=== PATIENT | female | born 1985 | race Caucasian/White ===

== ENCOUNTER 2016-09-17 21:10 | Emergency (ER) | payer MEDICAID ==
[~2016-09-17] VITALS: Ht 160 cm; Wt 72.6 kg
[2016-09-17 21:34] VITALS: BP 147/93
--- NOTE | 2016-09-17 22:38 | NUR ---
TO ER BED 3
--- NOTE | 2016-09-17 22:40 | NUR ---
31Y F BIB SELF C/O LOWER BACK PAIN X 3 DAYS WITH RECURRING HEADACHE. PT DENIES ANY TRAUMA TO THE AREA NOR HAS SHE BEEN IN ANY ACCIDENTS. PT STATES ALSO STATES SHE HAS BEEN HAVING PAINFUL URINATION. PT DENIES N/V/D; SKIN IS PINK/WARM/DRY; AAOX4 WITH EVEN AND STEADY GAIT; LUNGS CLEAR BL; HR EVEN AND REGULAR; PT DENIES ANY FEVER, CP, SOB, OR COUGH AT THIS TIME; PATIENT STATES PAIN OF 10/10 AT THIS TIME; VSS; PATIENT POSITIONED FOR COMFORT; HOB ELEVATED; BEDRAILS UP X2; BED DOWN. ER MD MADE AWARE OF PT STATUS.
--- NOTE | 2016-09-17 22:50 | NUR ---
Patient being evaluated by physician DR CHOI at bedside.
[2016-09-17 23:29] VITALS: BP 139/87
--- NOTE | 2016-09-17 23:29 | NUR ---
Patient discharged with v/s stable. Written and verbal after care instructions given and explained. Patient alert, oriented and verbalized understanding of instructions. Ambulatory with steady gait. All questions addressed prior to discharge. ID band removed. Patient advised to follow up with PMD. Rx of BACTRIM DS, ZOFRAN ODT 4MG, TRAMADOL 50MG given. Patient educated on indication of medication including possible reaction and side effects. Opportunity to ask questions provided and answered.
== END 2016-09-17 23:29 | disposition home or self-care (01) ==
LOC: MED 21:10
DX: S39.012A Strain of muscle, fascia and tendon of lower back, initial encounter (principal); N39.0 Urinary tract infection, site not specified; X58.XXXA Exposure to other specified factors, initial encounter; Y92.9 Unspecified place or not applicable; Z32.02 Encounter for pregnancy test, result negative

== ENCOUNTER 2016-09-28 00:17 | Emergency (ER) | payer MEDICAID ==
[~2016-09-28] VITALS: Ht 160 cm; Wt 72.6 kg
[2016-09-28 00:20] VITALS: BP 150/90
--- NOTE | 2016-09-28 00:26 | NUR ---
TO ER BED 3
[2016-09-28] MEDS ORDERED: NACL 0.9% 1,000 ML IV SCH (00:34)
[2016-09-28] MEDS ORDERED: ONDANSETRON 4 MG/2 ML VIAL IVP ONE (00:35)
[2016-09-28] MEDS ORDERED: KETOROLAC 30 MG/ML VIAL IVP ONE (00:35)
--- NOTE | 2016-09-28 00:56 | NUR ---
31Y/F PATIENT PRESENTS TO ED WITH C/O RT FLANK PAIN, VOMITING 6 HOURS AGO . DENIES FEVER, DIARRHEA. HX. KIDNEY DISEASE; SKIN IS PINK/WARM/DRY; AAOX4 WITH EVEN AND STEADY GAIT; LUNGS CLEAR BL; HR EVEN AND REGULAR; PT DENIES ANY FEVER, CP, SOB, OR COUGH AT THIS TIME; PATIENT STATES PAIN OF 10/10 AT THIS TIME; VSS; PATIENT POSITIONED FOR COMFORT; HOB ELEVATED; BEDRAILS UP X2; BED DOWN. ER MD MADE AWARE OF PT STATUS.
--- NOTE | 2016-09-28 01:00 | NUR ---
Patient being evaluated by DR. KLINE at bedside.
[2016-09-28 01:03] LABS: APPEARANCE,URINE CLEAR (CLEAR); BILIRUBIN,URINE NEGATIVE (NEGATIVE); BLOOD, URINE TRACE-I (NEGATIVE); COLOR,URINE YELLOW (YELLOW); LEUKOCYTE ESTERASE ,URINE NEGATIVE (NEGATIVE); NITRITE, URINE NEGATIVE (NEGATIVE); PH,URINE 7.5 (5.0-9.0); PROTEIN,URINE NEGATIVE (NEGATIVE); UGLUCOSE NEGATIVE (NEGATIVE); UROBILINOGEN,URINE 0.2 EU/dL (0.2 - 1)
[2016-09-28] MEDS ORDERED: MORPHINE SULFATE 4 MG/ML SYR IVP ONE ×2 (01:05→01:45)
[2016-09-28 01:06] LABS: BASOPHILS # (AUTO) 0.1 K/uL (0.00-0.22); BASOPHILS % (AUTO) 1.3 % (0.0-2.0); EOSINOPHILS # (AUTO) 0.1 K/uL (0-0.4); EOSINOPHILS % (AUTO) 1.4 % (0.0-4.0); HEMATOCRIT 28.6 % (36-48); HEMOGLOBIN 8.6 g/dL (12.0-16.0); LYMPHOCYTES # (AUTO) 1.9 K/uL (2.5-16.5); LYMPHOCYTES % (AUTO) 22.2 % (20.5-51.1); MEAN CORPUSCULAR HEMOGLOBIN 19 pg (27-31); MEAN CORPUSCULAR HGB CONC 30 g/dL (33-37); MEAN CORPUSCULAR VOLUME 63 fL (80-94); MONOCYTES # (AUTO) 0.4 K/uL (0.8-1.0); MONOCYTES % (AUTO) 4.6 % (1.7-9.3); NEUTROPHILS # (AUTO) 5.9 K/uL (1.8-7.7); NEUTROPHILS % (AUTO) 70.5 % (42.2-75.2); PLATELET COUNT (AUTO) 258 K/uL (140-450); RED BLOOD CELL COUNT(AUTO) 4.53 MIL/uL (4.20-5.40); RED CELL DISTRIBUTION WIDTH 15.9 % (11.6-13.7); WHITE BLOOD COUNT (AUTO) 8.4 K/uL (4.8-10.8)
[2016-09-28 01:09] LABS: HYPOCHROMASIA 1+
[2016-09-28 01:11] LABS: ALBUMIN 4.2 g/dL (3.4-5.0); ANION GAP 13.4 (8-16); CALCIUM 8.5 mg/dL (8.5-10.1); CARBON DIOXIDE 26.7 mmol/L (21-32); CREATININE 0.7 mg/dL (0.6-1.3); POTASSIUM 3.1 mmol/L (3.5-5.1); TOTAL BILIRUBIN 0.4 mg/dL (0.0-1.0)
[2016-09-28 01:13] LABS: BACTERIA,URINE 1+ /HPF (None Seen); RBC,URINE 0-5 (RARE) /HPF (0-5); SQUAMOUS EPITHELIAL CELL,UR 0-3 (FEW) /LPF (0-3 (FEW)); WBC,URINE 0-5 (RARE) /HPF (0-5)
[2016-09-28 02:48] VITALS: BP 130/85
--- NOTE | 2016-09-28 02:48 | NUR ---
Patient discharged with v/s stable. Written and verbal after care instructions given and explained. Patient alert, oriented and verbalized understanding of instructions. Ambulatory with steady gait. All questions addressed prior to discharge. ID band removed. Patient advised to follow up with PMD. Rx of MOTRIN 800 MG, NORCO 5/325MG, FLOMAX 0.4 MG given. Patient educated on indication of medication including possible reaction and side effects. Opportunity to ask questions provided and answered.
== END 2016-09-28 02:48 | disposition home or self-care (01) ==
LOC: MED 00:17
PROC: 3E033GC Introduction of Other Therapeutic Substance into Peripheral Vein, Percutaneous Approach (ICD-10-PCS; principal; 2016-09-28)
PROC: BW21ZZZ Computerized Tomography (CT Scan) of Abdomen and Pelvis (ICD-10-PCS; 2016-09-28)
DX: N20.0 Calculus of kidney (principal); Z87.442 Personal history of urinary calculi; Z32.02 Encounter for pregnancy test, result negative
CPT/HCPCS: 36415; 74176; 80053; 81001; 81025; 83690; 85025; 87086; 96361; 96374; 96375; 96376; 99285; J1885; J2270; J2405

== ENCOUNTER 2017-10-05 18:26 | Inpatient (IN) | payer MEDICAID ==
[~2017-10-05] VITALS: Ht 160 cm; Wt 75.7 kg
[2017-10-05 18:42] VITALS: BP_SYST 148; BP_SYST 153; BP_DIAS 100; BP_DIAS 98
--- NOTE | 2017-10-05 18:53 | NUR ---
AFTER PROVIDING URINE SAMPLE PT AMBULATES BACK TO THE LOBBY PER DR KLINE
[2017-10-05 19:13] LABS: BASOPHILS # (AUTO) 0.1 K/uL (0.00-0.22); BASOPHILS % (AUTO) 1.5 % (0.0-2.0); EOSINOPHILS # (AUTO) 0.1 K/uL (0-0.4); EOSINOPHILS % (AUTO) 0.9 % (0.0-4.0); HEMATOCRIT 31.3 % (36-48); HEMOGLOBIN 9.7 g/dL (12.0-16.0); LYMPHOCYTES # (AUTO) 2.6 K/uL (2.5-16.5); LYMPHOCYTES % (AUTO) 30.1 % (20.5-51.1); MEAN CORPUSCULAR HEMOGLOBIN 21 pg (27-31); MEAN CORPUSCULAR HGB CONC 31 g/dL (33-37); MEAN CORPUSCULAR VOLUME 69.3 fL (80-94); MONOCYTES # (AUTO) 0.4 K/uL (0.8-1.0); MONOCYTES % (AUTO) 4.7 % (1.7-9.3); NEUTROPHILS # (AUTO) 5.5 K/uL (1.8-7.7); NEUTROPHILS % (AUTO) 62.8 % (42.2-75.2); PLATELET COUNT (AUTO) 332 K/uL (140-450); RED BLOOD CELL COUNT(AUTO) 4.52 MIL/uL (4.20-5.40); RED CELL DISTRIBUTION WIDTH 17.9 % (11.6-13.7); WHITE BLOOD COUNT (AUTO) 8.7 K/uL (4.8-10.8)
--- NOTE | 2017-10-05 21:20 | NUR ---
PT TAKEN TO BED 12
--- NOTE | 2017-10-05 21:24 | NUR ---
32Y F BIB FAMILY C/O BACK PAIN RELATED TO RIGHT KIDNEY STENT PLACED IN 3 WEEKS AGO WHILE AT [facility]. PT STATES SHE IS SUPPOSE TO HAVE STENT REMOVED ON October BUT PAIN IS UNBAREABLE. PT STATES SHE HAS BEEN HAVING SEVERAL EPISODES OF HEMATURIA. PT STATES SHE WAS SEEN RECENTLY AT [facility], AND WAS TOLD SHE HAS AN INFECTION AND WAS GIVEN ABX AND PAIN MEDS BUT PT STATES PAIN HAS NOT SUBSIDE.
[2017-10-05] MEDS ORDERED: KETOROLAC 30 MG/ML VIAL IVP ONE (22:05)
[2017-10-05] MEDS ORDERED: NACL 0.9% 1,000 ML IV ONE (22:05)
[2017-10-05] MEDS ORDERED: cefTRIAXone 1,000 MG VIAL ONE (22:18)
[2017-10-05] MEDS ORDERED: MORPHINE SULFATE 4 MG/ML SYR IVP ONE (23:00)
--- NOTE | 2017-10-05 23:00 | NUR ---
Patient appears to be resting comfortably in bed. Vital Signs within normal limits. Respirations even and unlabored.
[2017-10-05 23:26] LABS: APPEARANCE,URINE CLEAR (CLEAR); BILIRUBIN,URINE NEGATIVE (NEGATIVE); BLOOD, URINE 3+ (NEGATIVE); COLOR,URINE YELLOW (YELLOW); LEUKOCYTE ESTERASE ,URINE 1+ (NEGATIVE); NITRITE, URINE NEGATIVE (NEGATIVE); PH,URINE 6.5 (5.0-9.0); UGLUCOSE NEGATIVE (NEGATIVE)
[2017-10-06 00:27] LABS: RBC,URINE 3-10 (FEW) /HPF (0-5)
[2017-10-06] MEDS ORDERED: MORPHINE SULFATE 4 MG/ML SYR IVP ONE (01:50)
[2017-10-06] MEDS ORDERED: ONDANSETRON 4 MG/2 ML VIAL IVP ONE (02:10)
[2017-10-06] MEDS ORDERED: ONDANSETRON 4 MG/2 ML VIAL ONE (02:11)
[2017-10-06 02:19] LABS: POTASSIUM 3.3 mmol/L (3.5-5.1)
[2017-10-06 02:20] LABS: ANION GAP 16.2 (8-16); CARBON DIOXIDE 23.1 mmol/L (21-32)
[2017-10-06 02:21] LABS: CREATININE 0.8 mg/dL (0.6-1.3); TOTAL BILIRUBIN 0.2 mg/dL (0.0-1.0)
[2017-10-06 02:22] LABS: ALBUMIN 3.7 g/dL (3.4-5.0)
[2017-10-06] MEDS ORDERED: POTASSIUM CHLORIDE 10 MEQ TABER PO ONE (03:15)
--- NOTE | 2017-10-06 03:33 | NUR ---
Patient discharged with v/s stable. Written and verbal after care instructions given and explained. Patient alert, oriented and verbalized understanding of instructions. Ambulatory with steady gait. All questions addressed prior to discharge. ID band removed. Patient advised to follow up with PMD. Rx of KELFEX 500 MG, PERCOCET 5/325 MG given. Patient educated on indication of medication including possible reaction and side effects. Opportunity to ask questions provided and answered.
--- NOTE | 2017-10-06 05:00 | NUR ---
LACTIC ACID 3.0. PT CALLED AND INFORMED TO RETURN TO ER. PT AGREES. ER MD DR GUSTAFSON MADE AWARE
[2017-10-06] MEDS ORDERED: NACL 0.9% 1,000 ML IV ONE (05:45)
--- NOTE | 2017-10-06 05:50 | NUR ---
PT RETURNED BACK TO ED; AMBULATED TO ER BED 12; ER MD DR GUSTAFSON MADE AWARE.
[2017-10-06] MEDS: NACL 0.9% 1,000 ML IV SCH ×3 (05:59→07:45)
[2017-10-06] MEDS ORDERED: ONDANSETRON 4 MG/2 ML VIAL IM/IVP PRN (06:00)
[2017-10-06] MEDS ORDERED: ACETAMINOPHEN 325 MG TAB PO PRN (06:00)
[2017-10-06] MEDS ORDERED: KETOROLAC 30 MG/ML VIAL IVP PRN (06:00)
[2017-10-06] MEDS ORDERED: HYDROcodone/APAP 7.5/325 MG 1 TAB PO PRN (06:00)
[2017-10-06] MEDS ORDERED: DOCUSATE SODIUM 100 MG GELCAP PO PRN (06:00)
--- NOTE | 2017-10-06 06:31 | NUR ---
Patient will be admitted to care of DR GREER. Admited to TELE 112A. Will go to room 112A. Belongings list completed. Report to LAMBERTO CHRISTIE.
--- NOTE | 2017-10-06 06:40 | NUR ---
PATIENT ADMITTED TO THE UNIT FROM ER. VITAL SIGNS TAKEN, MRSA SPECIMEN SWABBED. PLAN OF CARE DISCUSSED WITH PATIENT. PATIENT VERBALIZED UNDERSTANDING
[2017-10-06] MEDS: MORPHINE SULFATE 2 MG/ML SYR IVP PRN ×2 (07:12→12:02)
--- NOTE | 2017-10-06 07:15 | NUR ---
PATIENT REPORT GIVEN TO MORNING NURSE AT BEDSIDE FOR CONTINUITY OF CARE. PATIENT IS IN STABLE CONDITION
--- NOTE | 2017-10-06 07:16 | NUR ---
RECEIVED PATIENT REPORT AT BEDSIDE FROM HVAC CONTROLS TECHNICIAN NURSE FOR CONTINUITY OF CARE. NO SIGNS OF DISTRESS OR SOB NOTED. PATIENT C/O PAIN 9/10 D/T FLANK PAIN. PM NURSE MEDICATED PATIENT WITH MORPHINE PRN. WILL REASSESS. BREATHING EVEN AND UNLABORED. INITIAL ASSESSMENT DONE, VITAL SIGNS WITHIN NORMAL LIMITS. UPDATED BOARD, VERBALIZED PLAN OF CARE TO PATIENT, PATIENT VERBALIZED UNDERSTANDING. SAFETY PRECAUTION IN PLACE, CALL LIGHT WITHIN REACH, WILL CONTINUE TO MONITOR PATIENT.
[2017-10-06 07:55] VITALS: BP 136/94
--- NOTE | 2017-10-06 08:30 | NUR ---
ADMINISTERED ORDERED MEDICATION. PATIENT C/O OF FLANK PAIN 12/20. PRN NORCO GIVEN. PATIENT TOLERATED THEM WELL. SAFETY PRECAUTION IN PLACE, CALL LIGHT WITHIN REACH. WILL CONTINUE TO MONITOR PATIENT. Addendum: 10/06/17 at 1018 by Alberto Mullen RN XRAY TECHS IN TO DO CHEST XRAY. WILL AWAIT FOR RESULT.
[2017-10-06] MEDS ORDERED: LACTOBACILLUS RHAMNOSUS GG 1 EACH CAP PO SCH ×2 (09:00→17:00)
--- NOTE | 2017-10-06 09:45 | NUR ---
CALLED LAB TO CLARIFY ABOUT CANCELLED LACTIC ACID LAB DRAW. INFORMED DR. GRIER ABOUT CANCELED LACTIC ACID LAB BLOOD DRAW. AWAITING NEW ORDER.
[2017-10-06 10:06] LABS: PROTHROMBIN TIME 10.6 secs (10.8-13.4)
--- NOTE | 2017-10-06 10:15 | NUR ---
PATIENT C/O PAIN 01/19 D/T FLANK PAIN. MORPHINE IVP OFFERED, PATIENT REFUSED AT THIS MOMENT, STATING THAT IT DOES NOT WORK. TORADOL IVP OFFERED. PATIENT ALSO REFUSED STATING THAT THE TORADOL THAT SHE RECEIVED IN ER DID NOT WORK. PATIENT DID STATE THAT PRIOR TO BEING ADMITTED TO HOSPITAL, SHE WAS TAKEN NORCO 10 PO PRN FOR PAIN, AND THAT SEEM TO HELP. WILL PASS THIS MESSAGE ONTO DR. GRIER. PATIENT RESTING IN BED, BREATHING EVEN AND UNLABORED. SAFETY PRECAUTION IN PLACE, CALL LIGHT WITHIN REACH, WILL CONTINUE TO MONITOR PATIENT. Addendum: 10/06/17 at 1450 by Alberto Mullen RN URINE SAMPLE OBTAINED.
[2017-10-06 12:00] VITALS: BP 141/98
--- NOTE | 2017-10-06 12:02 | NUR ---
PATIENT C/O FLANK PAIN 10/10, NORCO 10 PRN NOT AVAILABLE YET. PATIENT ANXIOUS, CRYING, AND IN PAIN. PATIENT ACCEPTED PRN MORPHINE. PATIENT TOLERATING IT WELL. UPDATED PATIENT WITH PLAN OF CARE, PATIENT VERBALIZED UNDERSTANDING. SPOKE TO DR. GRIER ABOUT POSSIBLE ADVANCEMENT OF DIET. NEW ORDER OF FULL LIQUID ENTERED. DIETARY WAS CALLED, WAITING FOR FULL LIQUID DIET FOR PATIENT. PATIENT NOW RESTING IN BED, MEDICATED FOR PAIN AND WAITING FOR LATE LUNCH. SAFETY PRECAUTION IN PLACE, CALL LIGHT WITHIN REACH, WILL CONTINUE TO MONITOR PATIENT.
[2017-10-06] MEDS ORDERED: HYDROcodone/APAP 10/325 MG 1 TAB TAB PO PRN (12:10)
[2017-10-06] MEDS ORDERED: FERR-252 PO (14:00)
[2017-10-06] MEDS ORDERED: ASCO-786 PO (14:00)
[2017-10-06] MEDS ORDERED: ACET-2858 PO (14:00)
[2017-10-06] MEDS ORDERED: FERRIC GLUCONATE 125 MG in NACL 0.9% 100 ML IV SCH (15:00)
--- NOTE | 2017-10-06 15:05 | NUR ---
PT C/O FLANK PAIN 10/10, WITH FACIAL GRIMACING, RESTLESSNESS, AND CRYING. NORCO PRN ADMINISTERED. NEW ORDER OF FERRLECIT ADMINISTERED. PATIENT TOLERATING THEM WELL. CRITICAL LAB OF 3.[address] GRIER. PATIENT RESTING IN BED, MEDICATED FOR PAIN, SAFETY PRECAUTION IN PLACE, CALL LIGHT WITHIN REACH, WILL CONTINUE TO MONITOR PATIENT.
[2017-10-06] MEDS ORDERED: MORPHINE SULFATE 2 MG/ML SYR IVP PRN (15:25)
[2017-10-06 15:57] LABS: BARBITURATE, URINE NEG. ng/ml (NEG <=200); BENZODIAZEPINE, URINE NEG. ng/mL (NEG <=200); CANNABINOID, URINE NEG. ng/mL (NEG <=50); COCAINE, URINE NEG. ng/mL (NEG <=300); OPIATE, URINE POS. ng/mL (NEG <=2000); PHENCYCLIDINE SCREEN,URINE NEG. ng/mL (NEG <=25)
[2017-10-06 16:00] VITALS: BP 145/95
[2017-10-06] MEDS ORDERED: POTASSIUM CHLORIDE 40 MEQ, LIDOCAINE 1% 25 MG in NACL 0.9% 250 ML IV SCH (16:30)
[2017-10-06] MEDS ORDERED: CIPR500T9 PO (17:34)
[2017-10-06] MEDS ORDERED: LACT1.4C PO (17:34)
--- NOTE | 2017-10-06 17:45 | NUR ---
PT C/O FLANK PAIN 10/10, WITH FACIAL GRIMACING, RESTLESSNESS, AND CRYING. MORPHINE PRN ADMINISTERED FOR BREAKTHROUGH PAIN. PATIENT RESTING IN BED, MEDICATED FOR PAIN, SAFETY PRECAUTION IN PLACE, CALL LIGHT WITHIN REACH, WILL CONTINUE TO MONITOR PATIENT.
[2017-10-06] MEDS ORDERED: PHENAZOPYRIDINE 100 MG TAB PO SCH (18:00)
--- NOTE | 2017-10-06 18:35 | NUR ---
DISCHARGE INSTRUCTIONS AND EDUCATION GIVEN. PATIENT VERBALIZED UNDERSTANDING. IV REMOVED, IV CATHETER INTACT. MINIMAL BLOOD NOTED. ID BANDS CUT. PATIENT FINISHED DINNER. FAMILY AT BEDSIDE. PATIENT WILL NOW CHANGE INTO HER OWN CLOTHING AND BE READY FOR DISCHARGED.
--- NOTE | 2017-10-06 18:50 | NUR ---
PATIENT AMBULATED OFF FLOOR ACCOMPANIED BY FAMILY AND RN. PATIENT TOOK ALL HER BELONGINGS WITH HER. PATIENT IN STABLE CONDITION.
[2017-10-06 23:39] LABS: CHOL/HDL RATIO 2.6 (1-4.5); MAGNESIUM 1.8 mg/dL (1.8-2.4); PHOSPHORUS 3.1 mg/dL (2.5-4.9); THYROID STIMULATING HORMONE 1.34 uIU/mL (0.34-3.74)
[2017-10-07 08:37] LABS: T4 (THYROXINE) 9.6 ug/dL (4.5-12.0)
[2017-10-07] MEDS ORDERED: LACTOBACILLUS RHAMNOSUS GG 1 EACH CAP PO SCH (09:00)
[2017-10-07 15:32] LABS: FOLIC ACID 14.4 ng/mL (>3.0)
== END 2017-10-06 18:50 | disposition home or self-care (01) | DRG 463 ==
LOC: MED 18:26 → EDBEDREQSVC 10-06 03:34 → MED 10-06 05:12 → MTU 10-06 06:03
PROVIDERS: ADMIT Student in an Organized Health Care Education/Training Program; ATTEND Student in an Organized Health Care Education/Training Program
DX: N39.0 Urinary tract infection, site not specified (principal); N13.30 Unspecified hydronephrosis; K76.0 Fatty (change of) liver, not elsewhere classified; N20.0 Calculus of kidney; N85.2 Hypertrophy of uterus; N93.8 Other specified abnormal uterine and vaginal bleeding; E87.6 Hypokalemia; D64.9 Anemia, unspecified; N92.0 Excessive and frequent menstruation with regular cycle; N85.8 Other specified noninflammatory disorders of uterus
CPT/HCPCS: 36415; 71045; 80053; 80305; 81001; 81025; 82607; 82728; 82746; 83036; 83540; 83605; 83690; 83735; 84100; 84436; 84443; 84479; 84703; 85025; 85045; 85610; 85730; 87040; 87081; 87086; 93005; 96365; 96375; 96376; 99285; J0696; J1885; J2001; J2270; J2405; J2916; J3480; J7030; J7060

== ENCOUNTER 2017-11-02 23:31 | Inpatient (IN) | payer MEDICAID ==
[~2017-11-02] VITALS: Ht 160 cm; Wt 77.1 kg
[~2017-11-02 23:31] MED LIST: ACET-2858 PO; ASCO-786 PO; CIPR500T9 PO; FERR-252 PO; LACT1.4C PO
[2017-11-02 23:33] VITALS: BP 179/100
--- NOTE | 2017-11-02 23:43 | NUR ---
PT TAKEN TO CHAIR A
--- NOTE | 2017-11-02 23:43 | NUR ---
PATIENT PRESENTS TO ED WITH RIGHT FLANK PAIN AFTER HAVING SHUNT REMOVED FROM RIGHT KIDNEY AT 2PM AT UROLOGY CLINIC. PT STATES N/V, CANNOT KEEP FOOD DOWN, SATATES 10/10 PAIN. SHE IS RESTLESS. SKIN IS PINK/WARM/DRY; AAOX4 WITH EVEN AND STEADY GAIT; LUNGS CLEAR BL; HR EVEN AND REGULAR; PT DENIES ANY FEVER, CP, SOB, OR COUGH AT THIS TIME; PATIENT STATES PAIN OF 0/10 AT THIS TIME; VSS; PATIENT POSITIONED FOR COMFORT; DD MADE AWARE OF PT STATUS. CONTINUE TO MONITOR.
[2017-11-02] MEDS ORDERED: NACL 0.9% 500 ML IV ONE (23:59)
--- NOTE | 2017-11-02 23:59 | NUR ---
Dr. Bailon evaluating patient.
[2017-11-03] MEDS ORDERED: ONDANSETRON 4 MG/2 ML VIAL IVP ONE
[2017-11-03] MEDS ORDERED: KETOROLAC 30 MG/ML VIAL IVP ONE
--- NOTE | 2017-11-03 00:05 | NUR ---
PT MOVED TO BED 1
[2017-11-03 00:16] LABS: HEMOGLOBIN 9.5 g/dL (12.0-16.0); MEAN CORPUSCULAR HEMOGLOBIN 22 pg (27-31); MEAN CORPUSCULAR HGB CONC 31 g/dL (33-37); MEAN CORPUSCULAR VOLUME 70.6 fL (80-94); PLATELET COUNT (AUTO) 251 K/uL (140-450); RED BLOOD CELL COUNT(AUTO) 4.39 MIL/uL (4.20-5.40); RED CELL DISTRIBUTION WIDTH 19.8 % (11.6-13.7)
[2017-11-03 00:24] LABS: APPEARANCE,URINE SL CLOUDY (CLEAR); BILIRUBIN,URINE NEGATIVE (NEGATIVE); BLOOD, URINE 2+ (NEGATIVE); COLOR,URINE YELLOW (YELLOW); LEUKOCYTE ESTERASE ,URINE NEGATIVE (NEGATIVE); NITRITE, URINE NEGATIVE (NEGATIVE); PH,URINE 6.5 (5.0-9.0); UGLUCOSE NEGATIVE (NEGATIVE)
[2017-11-03 00:25] LABS: ANION GAP 17.6 (8-16); CARBON DIOXIDE 22.7 mmol/L (21-32); CREATININE 1.1 mg/dL (0.6-1.3); POTASSIUM 3.3 mmol/L (3.5-5.1)
[2017-11-03 00:31] LABS: ALBUMIN 3.9 g/dL (3.4-5.0); TOTAL BILIRUBIN 0.3 mg/dL (0.0-1.0); WHITE BLOOD COUNT (AUTO) 16.7 K/uL (4.8-10.8)
[2017-11-03 00:32] LABS: LYMPHOCYTES % (MANUAL) 4 % (20-46); MONOCYTES % (MANUAL) 1 % (5-12)
[2017-11-03 00:39] LABS: RBC,URINE 11-20 (MOD) /HPF (0-5)
[2017-11-03 00:44] LABS: PROTHROMBIN TIME 10.7 secs (10.8-13.4)
--- NOTE | 2017-11-03 00:45 | NUR ---
PT RETURN FROM CT
[2017-11-03] MEDS ORDERED: fentaNYL 0.05 MG/ML VIAL IVP ONE ×2 (00:50→01:25)
[2017-11-03] MEDS ORDERED: LEVOFLOXACIN 500 MG/D5W PREMIX 100 ML IV ONE (00:55)
--- NOTE | 2017-11-03 01:07 | NUR ---
CRITICAL LAB RECIEVED AT 01:07, DR ALVAREZ NOTIFIED IMMEDIATELY LACTIC ACID 2.9
[2017-11-03] MEDS ORDERED: NACL 0.9% 1,000 ML IV ONE (02:10)
[2017-11-03 02:20] VITALS: BP 143/92
[2017-11-03 02:20] LABS: BARBITURATE, URINE NEG. ng/ml (NEG <=200); BENZODIAZEPINE, URINE NEG. ng/mL (NEG <=200); CANNABINOID, URINE NEG. ng/mL (NEG <=50); COCAINE, URINE NEG. ng/mL (NEG <=300); OPIATE, URINE POS. ng/mL (NEG <=2000); PHENCYCLIDINE SCREEN,URINE NEG. ng/mL (NEG <=25)
--- NOTE | 2017-11-03 02:20 | NUR ---
RECEIVED PT FROM JU NIEVES AT 0220 RECEIVED REPORT AT BEDSIDE FOR CONTINUITY OF CARE. NO SOB. NO S/S OF DISTRESS. ON RA. PT IS IN PAIN RIGHT LOWER BACK FROM A SHUNT REMOVAL EARLIER TODAY. PT AAO X4. PAIN 04/21. IV LINE NOTED RAC 20G SALINE LOCK. VITALS WNL. BED LOWERED WITH CALL LIGHT WITHIN REACH. WILL CONTINUE TO MONITOR. PLAN OF CARE DISCUSSED WITH PT. PT VERBALIZED UNDERSTANDING.
--- NOTE | 2017-11-03 02:24 | NUR ---
REPORT GIVEN AND CARE TRANSFERED TO ALTHEA RN ROOM 120B. TRANSFERED VIA RNEY WITH VSS.
[2017-11-03 02:36] LABS: CHOL/HDL RATIO 2.7 (1-4.5); FREE T4 (FREE THYROXINE) 1.04 ng/dL (0.76-1.46); MAGNESIUM 1.7 mg/dL (1.8-2.4); THYROID STIMULATING HORMONE 2.43 uIU/mL (0.34-3.74)
[2017-11-03] MEDS ORDERED: MAGNESIUM OXIDE 400 MG TAB PO ONE (03:05)
[2017-11-03] MEDS ORDERED: POTASSIUM CHLORIDE 10 MEQ TABER PO ONE (03:05)
[2017-11-03] MEDS: TAMSULOSIN 0.4 MG CAP PO SCH ×2 (03:08→08:43)
[2017-11-03] MEDS: MORPHINE SULFATE 4 MG/ML SYR IVP PRN ×2 (03:08→09:38)
[2017-11-03] MEDS: NACL 0.9% 1,000 ML IV SCH ×3 (03:31→18:46)
--- NOTE | 2017-11-03 03:36 | NUR ---
LAB CALLED FOR CRITICAL LAB: LACTIC ACID 3.[address] ELLIS AWARE OF PT LEVEL.
[2017-11-03] MEDS: KETOROLAC 30 MG/ML VIAL IVP PRN ×2 (05:09→14:21)
[2017-11-03] MEDS: ONDANSETRON 4 MG/2 ML VIAL IVP PRN ×2 (05:10→18:46)
--- NOTE | 2017-11-03 06:00 | NUR ---
PT SLEEPING WILL CONTINUE TO MONITOR.
--- NOTE | 2017-11-03 07:28 | NUR ---
GAVE REPORT TO DEACON DAY SHIFT NURSE FOR CONTINUITY OF CARE.
--- NOTE | 2017-11-03 07:30 | NUR ---
RECEIVED PT FROM MORNING RN, PT SLEEPING BUT EASILY AWAKING WITH INITIAL ASSESSMENT. IV TO RIGHT AC # 20 RUNNING NS AT 125 MLS/HR, PT STATED PAIN TO LOWER BACK BUT IT IS TOLERABLE AT THIS MOMENT. POC EXPLAINED TO PT, PT VERBALIZED UNDERSTANDING, CALL LIGHT IN REACH, WILL CONTINUE TO MONITOR.
[2017-11-03 08:00] VITALS: BP 123/84
[2017-11-03] MEDS: DOCUSATE SODIUM 100 MG GELCAP PO SCH ×2 (08:43→20:34)
[2017-11-03] MEDS: HYDROcodone/APAP 7.5/325 MG 1 TAB PO PRN ×2 (08:44→17:32)
--- NOTE | 2017-11-03 09:20 | NUR ---
DUE MEDS GIVEN. PT TOLERATED WELL
--- NOTE | 2017-11-03 11:40 | NUR ---
PATIENT HAS BEEN SCREENED AND CATEGORIZED HIGH NUTRITION RISK. PATIENT WILL BE SEEN WITHIN 1-2 DAYS OF ADMISSION. 11/03/17 - 11/04/[address]
--- NOTE | 2017-11-03 11:58 | NUR ---
LUNCH TRAY SERVED, PT EAT 75% OF FOOD
[2017-11-03 12:00] VITALS: BP 123/75
[2017-11-03] MEDS ORDERED: MAG SULF 2000 MG/WATER PREMIX 50 ML IV SCH (13:00)
--- NOTE | 2017-11-03 13:30 | NUR ---
pt's daughter in to have conversation with and charge nurse while I was in lunch break. assisted pt to bathroom by KERRY, PT TOLERATED WELL. Addendum: 11/03/17 at 1514 by Nacho Carroll RN WRONG PT.
--- NOTE | 2017-11-03 14:21 | NUR ---
PT C/O PAIN, TORADOL 30 MG GIVEN ORDERED.
[2017-11-03] MEDS ORDERED: MORPHINE SULFATE 4 MG/ML SYR IVP SCH (14:23)
[2017-11-03 16:00] VITALS: BP 126/76
--- NOTE | 2017-11-03 17:32 | NUR ---
PT C/O PAIN , NORCO GIVEN ORDERED. TEMP CHECKED 99.7 AT THIS TIME. UNCOVER PT, OFFERED PT ICE BAG, PT REFUSED.
[2017-11-03] MEDS: ACETAMINOPHEN 325 MG TAB PO PRN (18:24)
--- NOTE | 2017-11-03 18:24 | NUR ---
RECHECKED ORAL TEMP 101F, TYLENOL GIVEN ORDERED. ICE BAGS GIVEN TO PT, ENCOURAGED PT TO DRINK ICE WATER.
--- NOTE | 2017-11-03 18:55 | NUR ---
RECHECKED ORAL TEMP 100.3F
--- NOTE | 2017-11-03 19:18 | NUR ---
oral temp 99.3 f
--- NOTE | 2017-11-03 19:30 | NUR ---
RECEIVED PT FROM DAY NURSE AT BEDSIDE FOR CONTINUITY OF CARE. NO SOB. NO S/S OF DISTRESS. ON RA. PT S/P SHUNT REMOVAL 11/02/17. PT AAOX4. IV LINE NOTED RAC 20G SALINE LOCK. VITALS WNL. BED LOWERED WITH CALL LIGHT WITHIN REACH. WILL CONTINUE TO MONITOR. PLAN OF CARE DISCUSSED WITH PT. PT VERBALIZED UNDERSTANDING.
[2017-11-03] MEDS ORDERED: MORPHINE SULFATE 4 MG/ML SYR ONE (20:34)
--- NOTE | 2017-11-03 20:41 | NUR ---
PT C/O 04/21 PAIN AND STATES TORADOL AND NORCO NOT HELPING. MADE DR. ELLIS AWARE, SHE STATED SHE WILL PUT ORDERS FOR MORPHINE IN
[2017-11-04] VITALS: BP 136/69
--- NOTE | 2017-11-04 00:57 | NUR ---
MORPHINE GIVEN 4 HOURS AGO, MORPHINE ORDERED Q6. PT STATING SHE IS IN A LOT OF PAIN RIGHT NOW. 03/22, MADE DR. ELLIS AWARE, DR. SALAS STATES IT IS OKAY TO GIVE IT EARLY.
[2017-11-04] MEDS: MORPHINE SULFATE 4 MG/ML SYR IVP PRN ×3 (00:58→20:34)
--- NOTE | 2017-11-04 01:30 | NUR ---
PT RESTING COMFORTABLY IN BED. NO S/S OF DISTRESS NOTED. RR EVEN/UNLABORED. PT A-FEBRILE
--- NOTE | 2017-11-04 01:30 | NUR ---
RECEIVED PT FROM JU NIEVES AT 0220 RECEIVED REPORT AT BEDSIDE FOR CONTINUITY OF CARE. NO SOB. NO S/S OF DISTRESS. ON RA. PT IS IN PAIN RIGHT LOWER BACK FROM A SHUNT REMOVAL EARLIER TODAY. PT AAO X4. PAIN 04/21. IV LINE NOTED RAC 20G SALINE LOCK. VITALS WNL. BED LOWERED WITH CALL LIGHT WITHIN REACH. WILL CONTINUE TO MONITOR. PLAN OF CARE DISCUSSED WITH PT. PT VERBALIZED UNDERSTANDING. Addendum: 11/04/17 at 0448 by Rhianna Alexander RN DISREGARD, WRONG NOTE
[2017-11-04] MEDS: ONDANSETRON 4 MG/2 ML VIAL IVP PRN ×4 (03:29→18:08)
[2017-11-04] MEDS: NACL 0.9% 1,000 ML IV SCH ×3 (03:29→19:10)
--- NOTE | 2017-11-04 03:30 | NUR ---
PT RESTING COMFORTABLY IN BED. NO S/S OF DISTRESS NOTED. RR EVEN/UNLABORED. PT A-FEBRILE
[2017-11-04] MEDS: KETOROLAC 30 MG/ML VIAL IVP PRN ×2 (05:07→15:08)
[2017-11-04 06:40] LABS: HEMATOCRIT 26.4 % (36-48); HEMOGLOBIN 8.3 g/dL (12.0-16.0); MEAN CORPUSCULAR HEMOGLOBIN 22 pg (27-31); MEAN CORPUSCULAR HGB CONC 31 g/dL (33-37); MEAN CORPUSCULAR VOLUME 70.9 fL (80-94); PLATELET COUNT (AUTO) 192 K/uL (140-450); RED BLOOD CELL COUNT(AUTO) 3.72 MIL/uL (4.20-5.40); RED CELL DISTRIBUTION WIDTH 19.4 % (11.6-13.7); WHITE BLOOD COUNT (AUTO) 14.3 K/uL (4.8-10.8)
[2017-11-04 06:47] LABS: ANION GAP 14.9 (8-16); CARBON DIOXIDE 20.5 mmol/L (21-32); CREATININE 0.7 mg/dL (0.6-1.3); POTASSIUM 3.4 mmol/L (3.5-5.1)
[2017-11-04 06:56] LABS: MONOCYTES % (MANUAL) 7 % (5-12)
[2017-11-04 06:59] LABS: LYMPHOCYTES % (MANUAL) 10 % (20-46)
--- NOTE | 2017-11-04 07:30 | NUR ---
REPORT GIVEN TO DAY NURSE, PT IN STABLE CONDITION. NO S/S OF DISTRESS NOTED.
--- NOTE | 2017-11-04 07:32 | NUR ---
RECEIVED BEDSIDE REPORT FROM COMMERCIAL LOAN CLOSER NURSE. PATIENT IS SLEEPING. NO SIGNS OF DISTRESS ON ROOM AIR. SHE IS A MED SURGE PATIENT. IV ON R AC 20G INFUSING 125ML/HR NS. IV IS CLEAN, DRY AND INTACT. SKIN IS INTACT. BED IN LOW POSITION. CALL LIGHT WITHIN REACH. WILL CONTINUE TO MONITOR THE PATIENT.
[2017-11-04 08:00] VITALS: BP 131/87
[2017-11-04] MEDS: TAMSULOSIN 0.4 MG CAP PO SCH (08:19)
--- NOTE | 2017-11-04 08:26 | NUR ---
PATIENT COMPLAINS OF 9/10 PAIN AND NAUSEA. ADMINISTERED PRN MEDICATIONS AND ORDERED PO MED. PATIENT TOLERATED MEDS WELL. IV IS CLEAN, DRY AND INTACT. WILL CONTINUE TO MONITOR THE PATIENT.
[2017-11-04] MEDS: DOCUSATE SODIUM 100 MG GELCAP PO SCH ×2 (08:33→20:34)
[2017-11-04] MEDS: FERROUS SULFATE 325 MG TABEC PO SCH (09:20)
[2017-11-04] MEDS ORDERED: HYDROcodone/APAP 10/325 MG 1 TAB TAB PO PRN (09:20)
[2017-11-04] MEDS: POTASSIUM CHLORIDE 20% 40 MEQ/15 ML UDC PO SCH (09:20)
[2017-11-04] MEDS: ASCORBIC ACID 500 MG TAB PO SCH (09:20)
[2017-11-04] MEDS ORDERED: FERRIC GLUCONATE 125 MG in NACL 0.9% 100 ML IV SCH (09:20)
[2017-11-04] MEDS ORDERED: FERROUS SULFATE 325 MG TABEC PO SCH (10:00)
[2017-11-04] MEDS ORDERED: ASCORBIC ACID 500 MG TAB PO SCH (10:00)
[2017-11-04] MEDS ORDERED: POTASSIUM CHLORIDE 20% 40 MEQ/15 ML UDC PO SCH (10:00)
--- NOTE | 2017-11-04 10:57 | NUR ---
PATIENT IS AWAKE, ALERT AND ORIENTEDX4. NO COMPLAINTS AT THIS TIME. ADMINISTERED MEDS. TOLERATED MEDS WELL. IV IS CLEAN, DRY AND INTACT. WILL CONTINUE TO MONITOR THE PATIENT.
[2017-11-04] MEDS: ACETAMINOPHEN 325 MG TAB PO PRN (11:42)
--- NOTE | 2017-11-04 12:49 | NUR ---
PATIENT SITTING IN BED. NO COMPLAINTS AT THIS TIME. BED IN LOW POSITION. CALL LIGHT WITHIN REACH. WILL CONTINUE TO MONITOR THE PATIENT.
--- NOTE | 2017-11-04 14:49 | NUR ---
11/04/17 RD INITIAL ASSESSMENT COMPLETED PLEASE REFER TO NUTRITION ASSESSMENT UNDER CARE ACTIVITY FOR ESTIMATED NUTRITIONAL NEEDS. 1. CONTINUE REGULAR DIET TOLERATED 2. RD TO FOLLOW-UP 3-5 DAYS, MODERATE RISK KRISTA JAMESON RD
[2017-11-04] MEDS ORDERED: LEVOFLOXACIN 750 MG/D5W PREMIX 150 ML IV SCH (14:50)
[2017-11-04 15:36] LABS: BASOPHILS # (AUTO) 0.1 K/uL (0.00-0.22); BASOPHILS % (AUTO) 0.6 % (0.0-2.0); EOSINOPHILS # (AUTO) 0.1 K/uL (0-0.4); EOSINOPHILS % (AUTO) 0.4 % (0.0-4.0); HEMATOCRIT 27.6 % (36-48); HEMOGLOBIN 8.5 g/dL (12.0-16.0); LYMPHOCYTES # (AUTO) 1.5 K/uL (2.5-16.5); LYMPHOCYTES % (AUTO) 12.4 % (20.5-51.1); MEAN CORPUSCULAR HEMOGLOBIN 22 pg (27-31); MEAN CORPUSCULAR HGB CONC 31 g/dL (33-37); MEAN CORPUSCULAR VOLUME 71.3 fL (80-94); MONOCYTES # (AUTO) 1.1 K/uL (0.8-1.0); MONOCYTES % (AUTO) 9.3 % (1.7-9.3); NEUTROPHILS # (AUTO) 9.3 K/uL (1.8-7.7); NEUTROPHILS % (AUTO) 77.3 % (42.2-75.2); PLATELET COUNT (AUTO) 189 K/uL (140-450); RED BLOOD CELL COUNT(AUTO) 3.87 MIL/uL (4.20-5.40); RED CELL DISTRIBUTION WIDTH 19.5 % (11.6-13.7); WHITE BLOOD COUNT (AUTO) 12.1 K/uL (4.8-10.8)
[2017-11-04 16:00] VITALS: BP 131/87
[2017-11-04] MEDS ORDERED: MORPHINE SULFATE 4 MG/ML SYR IVP PRN ×2 (17:15→20:15)
[2017-11-04] MEDS ORDERED: GENTAMICIN PER PHARMACY MC PRN (17:50)
[2017-11-04] MEDS ORDERED: VANCOMYCIN PER PHARMACY MC PRN (17:50)
--- NOTE | 2017-11-04 18:13 | NUR ---
ADMINISTERED MEDS NEEDED. PATIENT TOLERATED MEDS WELL. IV IS CLEAN, DRY AND INTACT. WILL CONTINUE TO MONITOR THE PATIENT
--- NOTE | 2017-11-04 19:20 | NUR ---
GAVE BEDSIDE REPORT TO CARBONATION EQUIPMENT OPERATOR NURSE. PATIENT ENDORSED IN STABLE CONDITION
--- NOTE | 2017-11-04 20:15 | NUR ---
MADE DR. JOHNSON AWARE THAT PT IS FEELING, "VERY NAUSEOUS, SHANEL BEEN THROWING UP, THE ZOFRAN IS NOT WORKING. 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
[2017-11-04] MEDS ORDERED: PROMETHAZINE 25 MG/ML VIAL IM SCH (20:30)
--- NOTE | 2017-11-04 20:34 | NUR ---
DR. ELLIS IN TO SEE PT, STATES IT IS OKAY TO GIVE MORPHINE EARLY BECAUSE PT IS IN A LOT OF PAIN
[2017-11-04] MEDS: GENTAMICIN 120 MG in DEXTROSE 5% 100 ML IV SCH (20:35)
[2017-11-04] MEDS: VANCOMYCIN 1,250 MG in NACL 0.9% 250 ML IV SCH (22:00)
[2017-11-05] VITALS: BP 136/95
--- NOTE | 2017-11-05 | NUR ---
ON 4L O2 VIA OXYMIZER Addendum: 11/05/17 at 0536 by Rhianna Alexander RN DISREGARDCLINTON PT
--- NOTE | 2017-11-05 | NUR ---
PT RESTING COMFORTABLY IN BED. NO S/S OF DISTRESS NOTED. VSS, WILL CONTINUE TO MONITOR
--- NOTE | 2017-11-05 03:00 | NUR ---
PT RESTING COMFORTABLY IN BED. NO S/S OF DISTRESS NOTED. VSS, WILL CONTINUE TO MONITOR
[2017-11-05] MEDS: NACL 0.9% 1,000 ML IV SCH ×3 (03:10→22:22)
[2017-11-05] MEDS: GENTAMICIN 120 MG in DEXTROSE 5% 100 ML IV SCH ×2 (05:11→13:10)
[2017-11-05 06:22] LABS: BASOPHILS % (AUTO) 0.4 % (0.0-2.0); EOSINOPHILS # (AUTO) 0.1 K/uL (0-0.4); EOSINOPHILS % (AUTO) 1.4 % (0.0-4.0); HEMATOCRIT 25.5 % (36-48); HEMOGLOBIN 8.1 g/dL (12.0-16.0); LYMPHOCYTES # (AUTO) 1.8 K/uL (2.5-16.5); LYMPHOCYTES % (AUTO) 21.2 % (20.5-51.1); MEAN CORPUSCULAR HEMOGLOBIN 23 pg (27-31); MEAN CORPUSCULAR HGB CONC 32 g/dL (33-37); MEAN CORPUSCULAR VOLUME 71.2 fL (80-94); MONOCYTES # (AUTO) 0.9 K/uL (0.8-1.0); MONOCYTES % (AUTO) 11.1 % (1.7-9.3); NEUTROPHILS # (AUTO) 5.6 K/uL (1.8-7.7); NEUTROPHILS % (AUTO) 65.9 % (42.2-75.2); PLATELET COUNT (AUTO) 212 K/uL (140-450); RED BLOOD CELL COUNT(AUTO) 3.58 MIL/uL (4.20-5.40); RED CELL DISTRIBUTION WIDTH 19.8 % (11.6-13.7); WHITE BLOOD COUNT (AUTO) 8.4 K/uL (4.8-10.8)
[2017-11-05 07:04] LABS: ANION GAP 12.5 (8-16); CARBON DIOXIDE 23.1 mmol/L (21-32); CREATININE 0.7 mg/dL (0.6-1.3); POTASSIUM 3.6 mmol/L (3.5-5.1)
--- NOTE | 2017-11-05 07:22 | NUR ---
REPORT GIVEN TO DAY NURSE FOR CONTINUITY OF CARE, PT IN STABLE CONDITION.
--- NOTE | 2017-11-05 07:23 | NUR ---
RECEIVED REPORT FROM PLASTIC FABRICATOR RN. PATIENT IS SLEEPING, BUT AROUSES TO NAME. HAS NO SIGNS AND SYMPTOMS OF ACUTE DISTRESS NOTED AT THIS TIME. HAS IV TO THE RIGHT AC 20G, INFUSING NS AT 125 ML/HR. SITE IS CLEAN, DRY, PATENT AND INTACT. BED IN LOWEST POSITION, SIDE RAILS UP X2, CALL LIGHT WITHIN REACH. WILL CONTINUE TO MONITOR.
[2017-11-05 08:00] VITALS: BP 114/82
[2017-11-05] MEDS: DOCUSATE SODIUM 100 MG GELCAP PO SCH ×2 (08:51→22:23)
[2017-11-05] MEDS: ASCORBIC ACID 500 MG TAB PO SCH (08:51)
[2017-11-05] MEDS: TAMSULOSIN 0.4 MG CAP PO SCH (08:52)
[2017-11-05] MEDS: FERROUS SULFATE 325 MG TABEC PO SCH (08:52)
[2017-11-05] MEDS: POTASSIUM CHLORIDE 20% 40 MEQ/15 ML UDC PO SCH (09:00)
[2017-11-05] MEDS: VANCOMYCIN 1,250 MG in NACL 0.9% 250 ML IV SCH (10:33)
[2017-11-05] MEDS: MORPHINE SULFATE 4 MG/ML SYR IVP PRN ×2 (10:39→17:52)
--- NOTE | 2017-11-05 13:31 | NUR ---
*LATE ENTRY FOR 11/03 CM NOTE CHART REVIEW DONE
[2017-11-05 16:00] VITALS: BP 123/82
[2017-11-05] MEDS: ONDANSETRON 4 MG/2 ML VIAL IVP PRN (17:52)
--- NOTE | 2017-11-05 19:30 | NUR ---
RECEIVED PT REPORT AT BEDSIDE FROM TRISTON FOR CONTINUITY OF CARE. PT AWAKE AOX4.NO SOB NO S/S OF DISTRESS. IV LINE NOTED NON INFUSING, WILL START NEW IV. BED LOWERED CALL LIGHT WITHIN REACH WILL CONTINUE TO MONITOR.
[2017-11-05] MEDS ORDERED: PROMETHAZINE 25 MG/ML VIAL IM SCH (21:30)
[2017-11-05] MEDS ORDERED: MORPHINE SULFATE 4 MG/ML SYR IVP SCH (21:30)
[2017-11-05] MEDS: GENTAMICIN 80 MG in DEXTROSE 5% 100 ML IV SCH (22:22)
--- NOTE | 2017-11-05 22:30 | NUR ---
STARTED NEW IV TO RIGHT FOREARM 22G. AND DC RAC 20 G. WILL CONTINUE TO MONITOR.
--- NOTE | 2017-11-06 00:14 | NUR ---
PT IS AWAKE AND RESTING WATCHING TV NO SOB. NO S/S OF DISTRESS. ON RA. WILL CONTINUE TO MONITOR.
--- NOTE | 2017-11-06 00:27 | NUR ---
SPOKE TO LAB. LAB WILL DO VANCO TROUGH AND CBC AT SAME TIME 0900 TO AVOID POCKING HER TWICE.
[2017-11-06] MEDS: VANCOMYCIN 1,250 MG in NACL 0.9% 250 ML IV SCH ×2 (00:38→10:34)
--- NOTE | 2017-11-06 02:35 | NUR ---
PT IS SLEEPING. NO SOB, NO S/S OF DISTRESS. PT ON RA. WILL CONTINUE TO MONITOR.
[2017-11-06] MEDS: GENTAMICIN 80 MG in DEXTROSE 5% 100 ML IV SCH ×2 (03:59→13:29)
[2017-11-06 04:00] VITALS: BP 130/86
--- NOTE | 2017-11-06 05:04 | NUR ---
ASSESSED PT PT IS ASLEEP. EASILY AROUSE AND AOX3. NO SOB NO S/S OF DISTRESS.
[2017-11-06] MEDS: MORPHINE SULFATE 4 MG/ML SYR IVP PRN ×2 (05:23→13:51)
--- NOTE | 2017-11-06 07:30 | NUR ---
GAVE REPORT TO DAY SHIFT NURSE FOR CONTINUITY OF CARE.
--- NOTE | 2017-11-06 07:31 | NUR ---
RECEIVED REPORT FROM PET HOUSE SITTER RN. PATIENT IS SLEEPING, AWAKES EASILY. NO SIGNS AND SYMPTOMS OF ACUTE DISTRESS NOTED AT THIS TIME. HAS IV TO THE RIGHT FA 22G, NS INFUSING AT 125 ML/HR. SITE IS CLEAN, DRY, PATENT AND INTACT. DISCUSSED PLAN OF CARE WITH PATIENT AND SHE VERBALIZED UNDERSTANDING. BED IN LOWEST POSITION, CALL LIGHT WITHIN REACH, SIDE RAILS UP X2. WILL CONTINUE TO MONITOR.
[2017-11-06 08:00] VITALS: BP 129/91
[2017-11-06] MEDS: TAMSULOSIN 0.4 MG CAP PO SCH (08:44)
[2017-11-06] MEDS: DOCUSATE SODIUM 100 MG GELCAP PO SCH (08:45)
[2017-11-06] MEDS: FERROUS SULFATE 325 MG TABEC PO SCH (08:45)
[2017-11-06] MEDS: ASCORBIC ACID 500 MG TAB PO SCH (08:46)
[2017-11-06] MEDS: POTASSIUM CHLORIDE 20% 40 MEQ/15 ML UDC PO SCH (09:00)
[2017-11-06 09:05] LABS: BASOPHILS % (AUTO) 0.3 % (0.0-2.0); EOSINOPHILS # (AUTO) 0.1 K/uL (0-0.4); EOSINOPHILS % (AUTO) 1.7 % (0.0-4.0); HEMATOCRIT 30.7 % (36-48); HEMOGLOBIN 9.3 g/dL (12.0-16.0); LYMPHOCYTES # (AUTO) 1.7 K/uL (2.5-16.5); LYMPHOCYTES % (AUTO) 23.5 % (20.5-51.1); MEAN CORPUSCULAR HEMOGLOBIN 22 pg (27-31); MEAN CORPUSCULAR HGB CONC 30 g/dL (33-37); MEAN CORPUSCULAR VOLUME 71.8 fL (80-94); MONOCYTES # (AUTO) 0.3 K/uL (0.8-1.0); MONOCYTES % (AUTO) 3.8 % (1.7-9.3); NEUTROPHILS # (AUTO) 5.1 K/uL (1.8-7.7); NEUTROPHILS % (AUTO) 70.7 % (42.2-75.2); PLATELET COUNT (AUTO) 257 K/uL (140-450); RED BLOOD CELL COUNT(AUTO) 4.27 MIL/uL (4.20-5.40); RED CELL DISTRIBUTION WIDTH 19.2 % (11.6-13.7); WHITE BLOOD COUNT (AUTO) 7.2 K/uL (4.8-10.8)
[2017-11-06 09:16] LABS: ANION GAP 13.5 (8-16); CARBON DIOXIDE 25.3 mmol/L (21-32); CREATININE 0.9 mg/dL (0.6-1.3); POTASSIUM 3.8 mmol/L (3.5-5.1)
[2017-11-06] MEDS ORDERED: LACT1.4C PO (13:53)
[2017-11-06] MEDS ORDERED: LEVO750T2 PO (13:56)
[2017-11-06] MEDS ORDERED: NORC10 PO (13:56)
[2017-11-06] MEDS ORDERED: DOCU-299 PO (13:56)
[2017-11-06 17:19] VITALS: BP 129/91
[2017-11-06] MEDS ORDERED: VANCOMYCIN 1,500 MG in DEXTROSE 5% 500 ML IV SCH (18:00)
[2017-11-06] MEDS ORDERED: AMPICILLIN 1,000 MG in NACL 0.9% 50 ML IV SCH (18:00)
--- NOTE | 2017-11-06 18:45 | NUR ---
DISCHARGE ORDER IS IN PLACE. EDUCATED PATIENT ON FOLLOW UP INSTRUCTIONS. INFORMED HER THAT THERE IS A COUPLE OF PRESCRIPTIONS FOR HER IN HER DISCHARGE PACKET. SHE VERBALIZED UNDERSTANDING. REMOVED IV FROM SITE, SITE IS CLEAN AND DRY. REMOVED ID BANDS. ALL BELONGINGS ARE WITH PATIENT. WILL WALK OUT WITH PATIENT.
== END 2017-11-06 18:45 | disposition home or self-care (01) | DRG 720 ==
LOC: MED 23:31 → MTU 11-03 00:56
PROVIDERS: ADMIT Family Medicine Sports Medicine; ATTEND Family Medicine Sports Medicine
DX: A41.9 Sepsis, unspecified organism (principal); N17.0 Acute kidney failure with tubular necrosis; E83.42 Hypomagnesemia; N12 Tubulo-interstitial nephritis, not specified as acute or chronic; I16.0 Hypertensive urgency; E87.6 Hypokalemia; Z87.440 Personal history of urinary (tract) infections; N20.0 Calculus of kidney; N83.202 Unspecified ovarian cyst, left side; B96.89 Other specified bacterial agents as the cause of diseases classified elsewhere; N13.1 Hydronephrosis with ureteral stricture, not elsewhere classified; D25.9 Leiomyoma of uterus, unspecified; I12.9 Hypertensive chronic kidney disease with stage 1 through stage 4 chronic kidney disease, or unspecified chronic kidney disease; N18.9 Chronic kidney disease, unspecified; E11.22 Type 2 diabetes mellitus with diabetic chronic kidney disease; D64.9 Anemia, unspecified; Z98.891 History of uterine scar from previous surgery; Z98.890 Other specified postprocedural states
CPT/HCPCS: 36415; 71045; 80048; 80053; 80170; 80202; 80305; 81001; 81025; 82150; 83036; 83605; 83690; 83735; 83880; 84100; 84439; 84443; 85025; 85610; 85730; 87040; 87081; 87086; 87186; 93005; 96365; 96375; 96376; 99285; J0290; J1580; J1885; J1956; J2270; J2405; J2550; J2916; J3010; J3370; J3475; J7030; J7060; Q0092

== ENCOUNTER 2022-11-30 16:27 | Inpatient (IN) | payer MEDICAID ==
[~2022-11-30] VITALS: Ht 160 cm; Wt 80.7 kg
[~2022-11-30 16:27] MED LIST changes: -ACET-2858 PO; -CIPR500T9 PO; +DOCU-299 PO; +HYDR-5092 PO; +LEVO750T2 PO; +NORC10 PO
[2022-11-30 17:04] VITALS: BP 141/98
[2022-11-30] MEDS ORDERED: KETOROLAC 30 MG/ML VIAL IVP ONE (18:30)
[2022-11-30] MEDS ORDERED: NACL 0.9% 1,000 ML IV SCH (18:30)
[2022-11-30 18:57] LABS: BASOPHILS % (AUTO) 0.3 % (0.0-2.0); EOSINOPHILS % (AUTO) 0.3 % (0.0-4.0); HEMATOCRIT 41.4 % (36-48); HEMOGLOBIN 14.6 g/dL (12.0-16.0); LYMPHOCYTES # (AUTO) 1.5 K/uL (2.5-16.5); LYMPHOCYTES % (AUTO) 12.5 % (20.5-51.1); MEAN CORPUSCULAR HEMOGLOBIN 30 pg (27-31); MEAN CORPUSCULAR HGB CONC 35 g/dL (33-37); MEAN CORPUSCULAR VOLUME 85.7 fL (80-94); MONOCYTES # (AUTO) 1.1 K/uL (0.8-1.0); MONOCYTES % (AUTO) 9.2 % (1.7-9.3); NEUTROPHILS # (AUTO) 9.2 K/uL (1.8-7.7); NEUTROPHILS % (AUTO) 77.7 % (42.2-75.2); PLATELET COUNT (AUTO) 255 K/uL (140-450); RED BLOOD CELL COUNT(AUTO) 4.83 MIL/uL (4.20-5.40); RED CELL DISTRIBUTION WIDTH 13.2 % (11.6-13.7); WHITE BLOOD COUNT (AUTO) 11.8 K/uL (4.8-10.8)
--- NOTE | 2022-11-30 19:00 | NUR ---
PT AMBULATED TO ER BED 3
[2022-11-30 19:08] LABS: APPEARANCE,URINE CLEAR (CLEAR); BILIRUBIN,URINE NEGATIVE (NEGATIVE); BLOOD, URINE 3+ (NEGATIVE); COLOR,URINE YELLOW (YELLOW); LEUKOCYTE ESTERASE ,URINE NEGATIVE (NEGATIVE); NITRITE, URINE NEGATIVE (NEGATIVE); PH,URINE 6.5 (5.0-9.0); UGLUCOSE NEGATIVE (NEGATIVE)
[2022-11-30 19:14] LABS: ALBUMIN 3.9 g/dL (3.4-5.0); ANION GAP 18.5 (8-16); CARBON DIOXIDE 25.4 mmol/L (21-32); CREATININE 0.7 mg/dL (0.6-1.3); POTASSIUM 3.9 mmol/L (3.5-5.1); TOTAL BILIRUBIN 1.2 mg/dL (0.0-1.0)
--- NOTE | 2022-11-30 19:17 | NUR ---
REPORT RECEIVED , PT C/O LT FLANK PAIN , ASSO WITH HEMATURIA, CHILLS. N/V
[2022-11-30 19:28] LABS: RBC,URINE >100 /HPF (0-5)
[2022-11-30] MEDS ORDERED: cefTRIAXone 1,000 MG VIAL ONE (19:31)
[2022-11-30] MEDS ORDERED: KETOROLAC 30 MG/ML VIAL ONE (19:32)
[2022-11-30] MEDS ORDERED: MORPHINE SULFATE 4 MG/ML SYR IVP ONE ×2 (20:15→22:00)
--- NOTE | 2022-11-30 22:25 | NUR ---
LEFT FLANK PAIN RETURNS ADDITIONAL PAIN MEDS GIVEN, PT UPDATED WITH PLAN OF CARE, INCLUDING ADMISSION TO THE HOSP, VERB UNDERSTANDING AGREED TO PROCEED
--- NOTE | 2022-11-30 22:35 | NUR ---
COVID SWAB COLLECTED AND SENT TO LAB.
[2022-11-30] MEDS ORDERED: HYDROcodone/APAP 10/325 MG 1 TAB TAB PO PRN (22:50)
[2022-11-30] MEDS ORDERED: MORPHINE SULFATE 2 MG/ML SYR IVP PRN (22:50)
[2022-11-30] MEDS ORDERED: LACTATED RINGERS 1,000 ML IV ONE (22:55)
[2022-11-30] MEDS ORDERED: AMLO10TA89 PO (22:59)
[2022-11-30] MEDS ORDERED: ONDANSETRON 4 MG/2 ML VIAL IVP PRN (23:05)
[2022-11-30] MEDS ORDERED: IBRU140C PO (23:07)
--- NOTE | 2022-11-30 23:14 | NUR ---
PERSONAL BELONGINGS AND MED RECONCILE COMPLETED
--- NOTE | 2022-11-30 23:50 | NUR ---
RECEIVED PATIENT FROM ER NURSE VIA [facility] FOR CONTINUITY OF CARE. PT IS ALERT ORIENTED X 4. NO COMPLAIN OF PAIN AT THIS TIME. PIV ON LEFT HAND INTACT AND PATENT. NO DISTRESS NOTED
[2022-12-01 04:00] VITALS: BP 128/79
[2022-12-01 06:50] LABS: CARBON DIOXIDE 30.1 mmol/L (21-32); CREATININE 0.7 mg/dL (0.6-1.3)
[2022-12-01 06:54] LABS: BASOPHILS % (AUTO) 0.3 % (0.0-2.0); EOSINOPHILS # (AUTO) 0.1 K/uL (0-0.4); EOSINOPHILS % (AUTO) 1.7 % (0.0-4.0); HEMATOCRIT 36.7 % (36-48); HEMOGLOBIN 12.9 g/dL (12.0-16.0); LYMPHOCYTES # (AUTO) 1.6 K/uL (2.5-16.5); LYMPHOCYTES % (AUTO) 27.7 % (20.5-51.1); MEAN CORPUSCULAR HEMOGLOBIN 31 pg (27-31); MEAN CORPUSCULAR HGB CONC 35 g/dL (33-37); MEAN CORPUSCULAR VOLUME 86.6 fL (80-94); MONOCYTES # (AUTO) 0.7 K/uL (0.8-1.0); MONOCYTES % (AUTO) 12.4 % (1.7-9.3); NEUTROPHILS # (AUTO) 3.4 K/uL (1.8-7.7); NEUTROPHILS % (AUTO) 57.9 % (42.2-75.2); PLATELET COUNT (AUTO) 224 K/uL (140-450); RED BLOOD CELL COUNT(AUTO) 4.23 MIL/uL (4.20-5.40); RED CELL DISTRIBUTION WIDTH 13.3 % (11.6-13.7); WHITE BLOOD COUNT (AUTO) 5.9 K/uL (4.8-10.8)
[2022-12-01 07:04] LABS: ANION GAP 8.8 (8-16)
--- NOTE | 2022-12-01 07:10 | NUR ---
RECEIVED PATIENT FROM PM NURSE FOR CONTINUATION OF CARE. PT SEEN ON BED ASLEEP. NORMAL RISE AND FALL OF CHEST. PATIENT CARE PLAN SEEN. PATIENT CARE CONTINUED.
[2022-12-01 07:13] LABS: POTASSIUM 2.9 mmol/L (3.5-5.1)
[2022-12-01 08:00] VITALS: BP 118/80
--- NOTE | 2022-12-01 08:51 | NUR ---
PATIENT HAS BEEN SCREENED AND CATEGORIZED LOW NUTRITION RISK. PATIENT WILL BE SEEN WITHIN 7 DAYS OF ADMISSION. 12/07/22 REVIEWED BY AKYLIN NICE RD
[2022-12-01] MEDS: MORPHINE SULFATE 2 MG/ML SYR IVP PRN ×3 (09:12→20:58)
[2022-12-01] MEDS: ENOXAPARIN 40 MG/0.4 ML SYR SUBQ SCH (09:57)
[2022-12-01] MEDS ORDERED: HYDROcodone/APAP 10/325 MG 1 TAB TAB PO PRN (10:21)
[2022-12-01] MEDS ORDERED: POTASSIUM CHLORIDE 10 MEQ TABER PO PRN (13:40)
[2022-12-01] MEDS ORDERED: KETOROLAC 15 MG/ML VIAL IM PRN (13:50)
[2022-12-01] MEDS: POTASSIUM CHLORIDE 10 MEQ TABER PO SCH ×2 (14:00→17:00)
[2022-12-01 16:00] VITALS: BP 134/97
--- NOTE | 2022-12-01 19:20 | NUR ---
ENDORSED PATIETN TO PM HARRYE FOR CONTINUATION OF CARE.
--- NOTE | 2022-12-01 19:22 | NUR ---
RECEIVED PATIENT IN BED AWAKE, ALERT VERBALLY RESPONSIVE. NO SOB NOTED ON ROOM AIR. CALL LIGHT ON EASY REACH. AMBULATORY. BED WHEELS LOCKED IN LOW POSITION. WILL CONTINUE TO MONITOR.
[2022-12-01 20:00] VITALS: BP 136/99
--- NOTE | 2022-12-01 20:58 | NUR ---
PATIENT COMPLAINED OF SEVERE BACK PAIN, MEDICATED WITH MORPHINE IVP.
[2022-12-02] MEDS: MORPHINE SULFATE 2 MG/ML SYR IVP PRN ×2 (02:50→12:46)
[2022-12-02 04:00] VITALS: BP 132/91
[2022-12-02] MEDS ORDERED: TAMSULOSIN 0.4 MG CAP PO SCH (08:30)
[2022-12-02] MEDS: ENOXAPARIN 40 MG/0.4 ML SYR SUBQ SCH (09:52)
[2022-12-02] MEDS ORDERED: NITR100C7 PO (12:34)
[2022-12-02] MEDS ORDERED: IBUP-2213 PO (12:36)
[2022-12-02] MEDS ORDERED: TAMS0.4C96 PO (12:36)
[2022-12-02 13:29] VITALS: BP 132/91
== END 2022-12-02 14:10 | disposition home or self-care (01) | DRG 465 ==
LOC: MED 16:27 → MTU 22:47
PROVIDERS: ADMIT Internal Medicine; ATTEND Internal Medicine
DX: N13.2 Hydronephrosis with renal and ureteral calculous obstruction (principal); K76.0 Fatty (change of) liver, not elsewhere classified; R16.0 Hepatomegaly, not elsewhere classified; E83.51 Hypocalcemia; E87.6 Hypokalemia; I10 Essential (primary) hypertension; Z20.822 Contact with and (suspected) exposure to COVID-19; Z90.710 Acquired absence of both cervix and uterus
CPT/HCPCS: 36415; 80048; 80053; 81001; 83605; 85025; 87081; 96361; 96374; 96375; 99285; J0696; J1650; J1885; J2270; J2405; J7060

== ENCOUNTER 2023-09-22 09:46 | Emergency (ER) | payer MEDICAID, OTHER ==
[~2023-09-22] VITALS: Ht 162.6 cm; Wt 81.6 kg
[~2023-09-22 09:46] MED LIST changes: +AMLO10TA89 PO; +IBRU140C PO; +IBUP-2213 PO; -LEVO750T2 PO; +NITR100C7 PO; +TAMS0.4C96 PO
[2023-09-22 09:56] VITALS: BP 143/92; PULSE 94; RESP 18; TEMP 98; O2SAT 97
[2023-09-22 10:38] LABS: APPEARANCE,URINE CLEAR (CLEAR); BILIRUBIN,URINE NEGATIVE (NEGATIVE); BLOOD, URINE NEGATIVE (NEGATIVE); COLOR,URINE YELLOW (YELLOW); LEUKOCYTE ESTERASE ,URINE NEGATIVE (NEGATIVE); NITRITE, URINE NEGATIVE (NEGATIVE); PROTEIN,URINE 2+ (NEGATIVE); UGLUCOSE NEGATIVE (NEGATIVE); UROBILINOGEN,URINE 0.2 EU/dL (0.2 - 1)
[2023-09-22 10:41] LABS: BACTERIA,URINE FEW /HPF (None Seen); RBC,URINE 0-5 /HPF (0-5); SQUAMOUS EPITHELIAL CELL,UR 0-3 (FEW) /LPF (0-3 (FEW)); WBC,URINE 0-5 /HPF (0-5)
[2023-09-22] MEDS ORDERED: cefTRIAXone 1,000 MG VIAL ONE ×2 (11:09)
[2023-09-22 11:13] LABS: BASOPHILS # (AUTO) 0.1 K/uL (0.00-0.22); BASOPHILS % (AUTO) 0.6 % (0.0-2.0); EOSINOPHILS # (AUTO) 0.1 K/uL (0-0.4); EOSINOPHILS % (AUTO) 0.7 % (0.0-4.0); HEMATOCRIT 48.1 % (36-48); LYMPHOCYTES # (AUTO) 2.6 K/uL (2.5-16.5); LYMPHOCYTES % (AUTO) 32.4 % (20.5-51.1); MEAN CORPUSCULAR HEMOGLOBIN 31 pg (27-31); MEAN CORPUSCULAR HGB CONC 35 g/dL (33-37); MEAN CORPUSCULAR VOLUME 87.8 fL (80-94); MONOCYTES # (AUTO) 0.5 K/uL (0.8-1.0); MONOCYTES % (AUTO) 5.6 % (1.7-9.3); NEUTROPHILS # (AUTO) 4.9 K/uL (1.8-7.7); NEUTROPHILS % (AUTO) 60.7 % (42.2-75.2); PLATELET COUNT (AUTO) 262 K/uL (140-450); RED BLOOD CELL COUNT(AUTO) 5.48 MIL/uL (4.20-5.40); RED CELL DISTRIBUTION WIDTH 12.9 % (11.6-13.7); WHITE BLOOD COUNT (AUTO) 8.1 K/uL (4.8-10.8)
[2023-09-22] MEDS: NACL 0.9% 1,000 ML IV ONE (11:18)
[2023-09-22] MEDS: ONDANSETRON 4 MG/2 ML VIAL IVP ONE (11:26)
[2023-09-22] MEDS: MORPHINE SULFATE 2 MG/ML SYR IVP ONE (11:31)
[2023-09-22 12:33] LABS: CALCIUM 9.4 mg/dL (8.5-10.1); CARBON DIOXIDE 26.3 mmol/L (21-32); CREATININE 0.9 mg/dL (0.6-1.3); POTASSIUM 3.3 mmol/L (3.5-5.1)
[2023-09-22 12:38] LABS: ALBUMIN 4.1 g/dL (3.4-5.0); BILIRUBIN,DIRECT 0.1 mg/dL (0.0-0.3); LACTIC ACID 2.2 mmol/L (0.4-2.0); TOTAL BILIRUBIN 0.5 mg/dL (0.0-1.0); TOTAL PROTEIN, SERUM 9.4 g/dL (6.4-8.2)
[2023-09-22] MEDS ORDERED: ONDA-188 PO (13:08)
[2023-09-22] MEDS ORDERED: TRAM-748 PO (13:08)
[2023-09-22] MEDS ORDERED: CEPH-588 PO (13:08)
[2023-09-22] MEDS: POTASSIUM CHLORIDE 10 MEQ TABER PO ONE (13:48)
[2023-09-22] MEDS: KETOROLAC 30 MG/ML VIAL IVP ONE (14:02)
[2023-09-22 14:33] VITALS: BP 138/101; PULSE 78; RESP 16; TEMP 98.1; O2SAT 97
== END 2023-09-22 14:33 | disposition home or self-care (01) ==
LOC: MED 09:46
DX: M54.50 Low back pain, unspecified (principal); J45.909 Unspecified asthma, uncomplicated; I12.9 Hypertensive chronic kidney disease with stage 1 through stage 4 chronic kidney disease, or unspecified chronic kidney disease; N28.9 Disorder of kidney and ureter, unspecified; Z79.899 Other long term (current) drug therapy
CPT/HCPCS: 36415; 80048; 80076; 81001; 81025; 83605; 85025; 87040; 87086; 96365; 96372; 96375; 99284; J0696; J1885; J2270; J2405; J7030

== ENCOUNTER 2023-11-02 19:23 | Observation (INO) | payer OTHER ==
[~2023-11-02] VITALS: Ht 167.6 cm; Wt 81.6 kg
[~2023-11-02 19:23] MED LIST changes: +CEPH-588 PO; +ONDA-188 PO; +TRAM-748 PO
[2023-11-02 19:34] VITALS: BP 126/85; PULSE 119; RESP 20; TEMP 98.3; O2SAT 96
[2023-11-02] MEDS: NACL 0.9% 1,000 ML IV ONE (20:00)
[2023-11-02 20:02] LABS: BASOPHILS % (AUTO) 0.4 % (0.0-2.0); EOSINOPHILS # (AUTO) 0.1 K/uL (0-0.4); EOSINOPHILS % (AUTO) 0.7 % (0.0-4.0); HEMATOCRIT 40.5 % (36-48); HEMOGLOBIN 14.4 g/dL (12.0-16.0); LYMPHOCYTES # (AUTO) 3.5 K/uL (2.5-16.5); MEAN CORPUSCULAR HEMOGLOBIN 31 pg (27-31); MEAN CORPUSCULAR HGB CONC 36 g/dL (33-37); NEUTROPHILS # (AUTO) 5.4 K/uL (1.8-7.7); NEUTROPHILS % (AUTO) 53.9 % (42.2-75.2); PLATELET COUNT (AUTO) 236 K/uL (140-450); RED CELL DISTRIBUTION WIDTH 12.7 % (11.6-13.7)
[2023-11-02 20:41] LABS: ALANINE AMINOTRANSFERASE 54 U/L (12-78); ALBUMIN 3.6 g/dL (3.4-5.0); ALKALINE PHOSPHATASE 68 U/L (50-136); ANION GAP 15.9 (8-16); ASPARTATE AMINOTRANSFERASE 30 U/L (15-37); CALCIUM 8.5 mg/dL (8.5-10.1); CARBON DIOXIDE 25.2 mmol/L (21-32); CHLORIDE 101 mmol/L (98-107); CREATININE 0.9 mg/dL (0.6-1.3); GFR ARICAN-AMERICAN 90 mL/min (>90); GFR NON ARICAN-AMERICAN 74 mL/min (>90); GLUCOSE 125 mg/dL (74-106); POTASSIUM 3.1 mmol/L (3.5-5.1); SODIUM SERUM 139 mmol/L (136-145); TOTAL BILIRUBIN 0.4 mg/dL (0.0-1.0); TOTAL PROTEIN, SERUM 6.9 g/dL (6.4-8.2); UREA NITROGEN, BLOOD 10 mg/dL (7-18)
[2023-11-02 20:53] LABS: APPEARANCE,URINE CLEAR (CLEAR); BILIRUBIN,URINE NEGATIVE (NEGATIVE); BLOOD, URINE TRACE-I (NEGATIVE); COLOR,URINE YELLOW (YELLOW); LEUKOCYTE ESTERASE ,URINE NEGATIVE (NEGATIVE); NITRITE, URINE NEGATIVE (NEGATIVE); PROTEIN,URINE 1+ (NEGATIVE); UGLUCOSE NEGATIVE (NEGATIVE); UROBILINOGEN,URINE 0.2 EU/dL (0.2 - 1)
[2023-11-02 21:06] LABS: BACTERIA,URINE FEW /HPF (None Seen); RBC,URINE 0-5 /HPF (0-5); SQUAMOUS EPITHELIAL CELL,UR 4-10 (MOD) /LPF (0-3 (FEW))
[2023-11-02] MEDS ORDERED: MAG SULF 2000 MG/WATER PREMIX 50 ML IV PRN (21:25)
[2023-11-02] MEDS ORDERED: KCL 20 MEQ IN 100 mL PREMIX 200 ML IV PRN (21:25)
[2023-11-02] MEDS ORDERED: ONDANSETRON 4 MG/2 ML VIAL IVP PRN (21:25)
[2023-11-02] MEDS ORDERED: MAGNESIUM OXIDE 400 MG TAB PO PRN (21:25)
[2023-11-02] MEDS ORDERED: cefTRIAXone 1,000 MG VIAL ONE (21:29)
[2023-11-02] MEDS: POTASSIUM CHLORIDE 10 MEQ TABER PO ONE (21:43)
[2023-11-02] MEDS ORDERED: levETIRAcetam 100 MG/ML VIAL IV ONE (21:58)
[2023-11-02] MEDS: levETIRAcetam 500 MG in NACL 0.9% 100 ML IV SCH (22:30)
[2023-11-02] MEDS: HYDROcodone/APAP 5/325 MG 1 TAB TAB PO PRN (22:40)
[2023-11-02] MEDS ORDERED: SERT25TA PO (23:10)
[2023-11-02] MEDS ORDERED: [UNRECOGNIZED DRUG - CODE] PO (23:11)
[2023-11-03 07:07] LABS: BASOPHILS % (AUTO) 0.2 % (0.0-2.0); EOSINOPHILS # (AUTO) 0.1 K/uL (0-0.4); EOSINOPHILS % (AUTO) 0.8 % (0.0-4.0); HEMATOCRIT 38.1 % (36-48); HEMOGLOBIN 13.5 g/dL (12.0-16.0); LYMPHOCYTES # (AUTO) 2.8 K/uL (2.5-16.5); LYMPHOCYTES % (AUTO) 29.4 % (20.5-51.1); MEAN CORPUSCULAR HEMOGLOBIN 31 pg (27-31); MEAN CORPUSCULAR HGB CONC 36 g/dL (33-37); MEAN CORPUSCULAR VOLUME 88.1 fL (80-94); MONOCYTES # (AUTO) 0.8 K/uL (0.8-1.0); MONOCYTES % (AUTO) 8.9 % (1.7-9.3); NEUTROPHILS # (AUTO) 5.8 K/uL (1.8-7.7); NEUTROPHILS % (AUTO) 60.7 % (42.2-75.2); PLATELET COUNT (AUTO) 234 K/uL (140-450); RED BLOOD CELL COUNT(AUTO) 4.33 MIL/uL (4.20-5.40); WHITE BLOOD COUNT (AUTO) 9.5 K/uL (4.8-10.8)
[2023-11-03 07:42] LABS: MAGNESIUM 2.2 mg/dL (1.8-2.4); PHOSPHORUS 3.4 mg/dL (2.5-4.9)
[2023-11-03 07:50] LABS: ANION GAP 14.1 (8-16); CALCIUM 8.3 mg/dL (8.5-10.1); CARBON DIOXIDE 25.2 mmol/L (21-32); CREATININE 0.7 mg/dL (0.6-1.3); POTASSIUM 3.3 mmol/L (3.5-5.1)
[2023-11-03] MEDS: POTASSIUM CHLORIDE 10 MEQ TABER PO PRN (09:00)
[2023-11-03] MEDS: ACETAMINOPHEN 325 MG TAB PO PRN (11:05)
[2023-11-03] MEDS ORDERED: CEPH500T PO (17:05)
[2023-11-03 18:04] VITALS: BP 129/78; PULSE 92; RESP 16; TEMP 97
[2023-11-03 18:20] VITALS: BP 129/78; PULSE 92; RESP 18; TEMP 97.6; O2SAT 98
[2023-11-03] MEDS ORDERED: MEDS-TO-BEDS MC SCH (21:00)
== END 2023-11-03 18:27 | disposition home or self-care (01) ==
LOC: MED 19:23 → MTU 21:29
PROVIDERS: ADMIT Hospitalist; ATTEND Hospitalist
DX: N39.0 Urinary tract infection, site not specified (principal); D72.829 Elevated white blood cell count, unspecified; D50.9 Iron deficiency anemia, unspecified; I10 Essential (primary) hypertension
CPT/HCPCS: 36415; 70450; 71045; 80048; 80053; 81001; 83735; 84100; 84484; 85025; 87086; 96361; 96365; 96366; 96367; 96372; 99284; G0378; J0696; J1644; J1953; 93005; J7060

== ENCOUNTER 2023-12-31 08:51 | Emergency (ER) | payer OTHER ==
[~2023-12-31] VITALS: Ht 160 cm; Wt 81.6 kg
[~2023-12-31 08:51] MED LIST changes: -ASCO-786 PO; -CEPH-588 PO; +CEPH500T PO; -DOCU-299 PO; -FERR-252 PO; -HYDR-5092 PO; -IBUP-2213 PO; -LACT1.4C PO; -NITR100C7 PO; -NORC10 PO; -ONDA-188 PO; +SERT25TA PO; -TAMS0.4C96 PO; -TRAM-748 PO; +[UNRECOGNIZED DRUG - CODE] PO
[2023-12-31 09:03] VITALS: BP 137/91; PULSE 97; RESP 18; TEMP 98.3; O2SAT 99
[2023-12-31] MEDS: NACL 0.9% 1,000 ML IV ONE (09:16)
[2023-12-31] MEDS: KETOROLAC 30 MG/ML VIAL IVP ONE (09:18)
[2023-12-31 09:19] LABS: APPEARANCE,URINE SLIGHTLY CLOUDY (CLEAR); BILIRUBIN,URINE NEGATIVE (NEGATIVE); BLOOD, URINE 1+ (NEGATIVE); COLOR,URINE YELLOW (YELLOW); LEUKOCYTE ESTERASE ,URINE NEGATIVE (NEGATIVE); NITRITE, URINE NEGATIVE (NEGATIVE); PROTEIN,URINE 1+ (NEGATIVE); UGLUCOSE NEGATIVE (NEGATIVE); UROBILINOGEN,URINE 0.2 EU/dL (0.2 - 1)
[2023-12-31] MEDS ORDERED: IBUP-2213 PO (09:20)
[2023-12-31] MEDS ORDERED: ACET-8905 PO (09:20)
[2023-12-31] MEDS ORDERED: ONDA8TAB87 PO (09:20)
[2023-12-31] MEDS ORDERED: TAMS0.4C96 PO (09:20)
[2023-12-31 09:35] LABS: BACTERIA,URINE 10-30 (MOD) /HPF (None Seen); SQUAMOUS EPITHELIAL CELL,UR 4-10 (MOD) /LPF (0-3 (FEW)); WBC,URINE 0-5 /HPF (0-5)
[2023-12-31 10:05] VITALS: BP 125/85; PULSE 88; RESP 16; TEMP 98; O2SAT 99
== END 2023-12-31 10:05 | disposition home or self-care (01) ==
LOC: MED 08:51
DX: R10.9 Unspecified abdominal pain (principal); R30.0 Dysuria; R68.83 Chills (without fever); I10 Essential (primary) hypertension; N28.9 Disorder of kidney and ureter, unspecified; J45.909 Unspecified asthma, uncomplicated; Z79.899 Other long term (current) drug therapy; Z90.710 Acquired absence of both cervix and uterus
CPT/HCPCS: 81001; 81025; 87086; 96361; 96374; 99283; J1885; J7030; 81002

== ENCOUNTER 2024-02-23 16:09 | Emergency (ER) | payer OTHER ==
[~2024-02-23] VITALS: Ht 160 cm; Wt 87.5 kg
[~2024-02-23 16:09] MED LIST changes: +ACET-8905 PO; +IBUP-2213 PO; +ONDA8TAB87 PO; +TAMS0.4C96 PO
[2024-02-23 16:26] VITALS: BP 133/94; PULSE 96; RESP 18; TEMP 98.1; O2SAT 99
[2024-02-23 17:11] LABS: APPEARANCE,URINE TURBID (CLEAR); BILIRUBIN,URINE NEGATIVE (NEGATIVE); BLOOD, URINE NEGATIVE (NEGATIVE); COLOR,URINE YELLOW (YELLOW); LEUKOCYTE ESTERASE ,URINE TRACE (NEGATIVE); NITRITE, URINE NEGATIVE (NEGATIVE); PROTEIN,URINE NEGATIVE (NEGATIVE); UGLUCOSE NEGATIVE (NEGATIVE); UROBILINOGEN,URINE 0.2 EU/dL (0.2 - 1)
[2024-02-23 17:21] LABS: RBC,URINE 0-5 /HPF (0-5)
[2024-02-23 17:22] LABS: BACTERIA,URINE >30 (MANY) /HPF (None Seen); SQUAMOUS EPITHELIAL CELL,UR 4-10 (MOD) /LPF (0-3 (FEW))
[2024-02-23 17:33] LABS: BASOPHILS % (AUTO) 0.4 % (0.0-2.0); EOSINOPHILS # (AUTO) 0.1 K/uL (0-0.4); EOSINOPHILS % (AUTO) 1.1 % (0.0-4.0); HEMATOCRIT 41.3 % (36-48); HEMOGLOBIN 14.4 g/dL (12.0-16.0); LYMPHOCYTES # (AUTO) 3.3 K/uL (2.5-16.5); LYMPHOCYTES % (AUTO) 38.1 % (20.5-51.1); MEAN CORPUSCULAR HEMOGLOBIN 30 pg (27-31); MEAN CORPUSCULAR HGB CONC 35 g/dL (33-37); MEAN CORPUSCULAR VOLUME 87.3 fL (80-94); MONOCYTES # (AUTO) 0.9 K/uL (0.8-1.0); MONOCYTES % (AUTO) 10.7 % (1.7-9.3); NEUTROPHILS # (AUTO) 4.3 K/uL (1.8-7.7); NEUTROPHILS % (AUTO) 49.7 % (42.2-75.2); PLATELET COUNT (AUTO) 255 K/uL (140-450); RED BLOOD CELL COUNT(AUTO) 4.73 MIL/uL (4.20-5.40); RED CELL DISTRIBUTION WIDTH 13.1 % (11.6-13.7); WHITE BLOOD COUNT (AUTO) 8.7 K/uL (4.8-10.8)
[2024-02-23 17:48] LABS: ANION GAP 13.6 (8-16); CALCIUM 9.1 mg/dL (8.5-10.1); CARBON DIOXIDE 26.6 mmol/L (21-32); CREATININE 0.9 mg/dL (0.6-1.3); POTASSIUM 3.2 mmol/L (3.5-5.1)
[2024-02-23 17:49] LABS: ALBUMIN 3.4 g/dL (3.4-5.0); BILIRUBIN,DIRECT 0.1 mg/dL (0.0-0.3); TOTAL BILIRUBIN 0.3 mg/dL (0.0-1.0); TOTAL PROTEIN, SERUM 7.1 g/dL (6.4-8.2)
[2024-02-23] MEDS ORDERED: CEPH-588 PO (19:08)
[2024-02-23] MEDS ORDERED: IBUP-2217 PO (19:09)
[2024-02-23] MEDS: IBUPROFEN 800 MG TAB PO ONE (19:14)
== END 2024-02-23 19:35 | disposition home or self-care (01) ==
LOC: MED 16:09
DX: N39.0 Urinary tract infection, site not specified (principal); G43.909 Migraine, unspecified, not intractable, without status migrainosus; Z90.710 Acquired absence of both cervix and uterus; Z98.890 Other specified postprocedural states; Z79.899 Other long term (current) drug therapy
CPT/HCPCS: 36415; 80048; 80076; 81001; 81025; 83690; 85025; 87086; 99283

== ENCOUNTER 2024-03-23 19:16 | Emergency (ER) | payer OTHER ==
[~2024-03-23] VITALS: Ht 160 cm; Wt 86.2 kg
[~2024-03-23 19:16] MED LIST changes: +CEPH-588 PO; +IBUP-2217 PO
[2024-03-23 19:20] VITALS: BP 141/100; PULSE 109; RESP 16; TEMP 97.7; O2SAT 99
[2024-03-23] MEDS ORDERED: levETIRAcetam 100 MG/ML VIAL IV ONE (20:29)
[2024-03-23 20:31] LABS: BASOPHILS % (AUTO) 0.2 % (0.0-2.0); EOSINOPHILS # (AUTO) 0.1 K/uL (0-0.4); EOSINOPHILS % (AUTO) 0.4 % (0.0-4.0); HEMATOCRIT 44.2 % (36-48); HEMOGLOBIN 15.4 g/dL (12.0-16.0); LYMPHOCYTES # (AUTO) 2.2 K/uL (2.5-16.5); LYMPHOCYTES % (AUTO) 15.7 % (20.5-51.1); MEAN CORPUSCULAR HEMOGLOBIN 31 pg (27-31); MEAN CORPUSCULAR HGB CONC 35 g/dL (33-37); MEAN CORPUSCULAR VOLUME 87.4 fL (80-94); MONOCYTES % (AUTO) 7.4 % (1.7-9.3); NEUTROPHILS # (AUTO) 10.8 K/uL (1.8-7.7); NEUTROPHILS % (AUTO) 76.3 % (42.2-75.2); PLATELET COUNT (AUTO) 231 K/uL (140-450); RED BLOOD CELL COUNT(AUTO) 5.05 MIL/uL (4.20-5.40); WHITE BLOOD COUNT (AUTO) 14.2 K/uL (4.8-10.8)
[2024-03-23] MEDS ORDERED: LEVE1000 PO (20:37)
[2024-03-23 20:50] LABS: ANION GAP 13.4 (8-16); CALCIUM 8.7 mg/dL (8.5-10.1); CARBON DIOXIDE 25.1 mmol/L (21-32); POTASSIUM 3.5 mmol/L (3.5-5.1)
[2024-03-23 20:53] LABS: ALBUMIN 3.7 g/dL (3.4-5.0); BILIRUBIN,DIRECT 0.1 mg/dL (0.0-0.3); TOTAL BILIRUBIN 0.3 mg/dL (0.0-1.0); TOTAL PROTEIN, SERUM 7.2 g/dL (6.4-8.2)
[2024-03-23 21:11] LABS: APPEARANCE,URINE CLEAR (CLEAR); BILIRUBIN,URINE NEGATIVE (NEGATIVE); BLOOD, URINE 1+ (NEGATIVE); COLOR,URINE YELLOW (YELLOW); LEUKOCYTE ESTERASE ,URINE NEGATIVE (NEGATIVE); NITRITE, URINE NEGATIVE (NEGATIVE); PROTEIN,URINE 2+ (NEGATIVE); UGLUCOSE NEGATIVE (NEGATIVE); UROBILINOGEN,URINE 0.2 EU/dL (0.2 - 1)
[2024-03-23] MEDS: levETIRAcetam 1,000 MG in NACL 0.9% 100 ML IV ONE ×2 (21:12→21:54)
[2024-03-23 21:17] LABS: BACTERIA,URINE 2+ /HPF (None Seen); MUCUS,URINE 1+ /LPF (None Seen); SQUAMOUS EPITHELIAL CELL,UR 4-10 (MOD) /LPF (0-3 (FEW))
[2024-03-23] MEDS ORDERED: CEPH-588 PO (21:41)
[2024-03-23 22:16] LABS: AMPHETAMINE, URINE NEGATIVE ng/ml (NEG <=1000); BARBITURATE, URINE NEGATIVE ng/ml (NEG <=200); BENZODIAZEPINE, URINE NEGATIVE ng/mL (NEG <=200); CANNABINOID, URINE NEGATIVE ng/mL (NEG <=50); COCAINE, URINE NEGATIVE ng/mL (NEG <=300); OPIATE, URINE NEGATIVE ng/mL (NEG <=2000); PHENCYCLIDINE SCREEN,URINE NEGATIVE ng/mL (NEG <=25)
[2024-03-23 22:43] VITALS: BP 141/100; PULSE 109; RESP 16; TEMP 97.7; O2SAT 99
== END 2024-03-23 22:43 | disposition home or self-care (01) ==
LOC: MED 19:16
DX: S91.104A Unspecified open wound of right lesser toe(s) without damage to nail, initial encounter (principal); R56.9 Unspecified convulsions; N39.0 Urinary tract infection, site not specified; Z79.899 Other long term (current) drug therapy; W01.198A Fall on same level from slipping, tripping and stumbling with subsequent striking against other object, initial encounter; Y92.002 Bathroom of unspecified non-institutional (private) residence as the place of occurrence of the external cause; Y93.89 Activity, other specified; Y99.8 Other external cause status
CPT/HCPCS: 36415; 80048; 80076; 80305; 81001; 81025; 85025; 87086; 96365; 99284; J1953

== ENCOUNTER 2024-05-11 11:36 | Emergency (ER) | payer OTHER ==
[~2024-05-11] VITALS: Ht 160 cm; Wt 83.9 kg
[~2024-05-11 11:36] MED LIST changes: +LEVE1000 PO
[2024-05-11 11:47] VITALS: BP 174/129; PULSE 110; RESP 18; TEMP 98.2; O2SAT 97
[2024-05-11] MEDS: KETOROLAC 30 MG/ML VIAL IVP ONE (12:42)
[2024-05-11] MEDS: METOCLOPRAMIDE 10 MG/2 ML INJ VIAL IVP ONE (12:43)
[2024-05-11 13:01] VITALS: O2SAT 97
[2024-05-11 13:36] LABS: APPEARANCE,URINE CLEAR (CLEAR); BILIRUBIN,URINE NEGATIVE (NEGATIVE); BLOOD, URINE NEGATIVE (NEGATIVE); COLOR,URINE YELLOW (YELLOW); LEUKOCYTE ESTERASE ,URINE 2+ (NEGATIVE); NITRITE, URINE NEGATIVE (NEGATIVE); PH,URINE 8.5 (5.0-9.0); PROTEIN,URINE NEGATIVE (NEGATIVE); UGLUCOSE NEGATIVE (NEGATIVE)
[2024-05-11 13:48] LABS: BACTERIA,URINE OCCASSIONAL /HPF (None Seen); RBC,URINE 0-5 /HPF (0-5); SQUAMOUS EPITHELIAL CELL,UR 0-3 (FEW) /LPF (0-3 (FEW))
[2024-05-11] MEDS ORDERED: CEPH-588 PO (14:54)
[2024-05-11 15:11] VITALS: BP 154/103; PULSE 103; RESP 17; TEMP 98.2; O2SAT 97
== END 2024-05-11 15:18 | disposition home or self-care (01) ==
LOC: MED 11:36
DX: N39.0 Urinary tract infection, site not specified (principal); G43.909 Migraine, unspecified, not intractable, without status migrainosus; J45.909 Unspecified asthma, uncomplicated; I10 Essential (primary) hypertension; Z87.448 Personal history of other diseases of urinary system; Z87.442 Personal history of urinary calculi; Z79.899 Other long term (current) drug therapy
CPT/HCPCS: 81001; 81025; 87086; 96374; 96375; 99284; J1885; J2765